=== PATIENT | male | born 1995 | race Caucasian/White ===

== ENCOUNTER 2017-12-03 10:57 | Emergency (ER) | payer OTHER ==
[~2017-12-03 10:57] MED LIST: ALBU8.5H12 IH; AMPH15TA3 PO; BECL8.7A6 IH; LOR5/325 PO
--- NOTE | 2017-12-03 11:36 | ER Report ---
History and Physical Time Seen By MD: 11:23 Hx. of Stated Complaint: ROLLED OVER IN BED, RIGHT SHOULDER DISLOCATED. THIS IS THE 4TH DISLOCATION ON THAT SIDE HPI/ROS CHIEF COMPLAINT: Right shoulder pain HISTORY OF PRESENT ILLNESS: 21-year-old male patient presents to emergency room with complaint of right shoulder pain. Patient has a history of shoulder dislocations 3. He states that he was rolling over in bed this morning and felt his shoulder pop out of place. He states that he does not have any numbness or tingling to his hand. He denies taking any medication for this. He states that last time this happened that he was "knocked out" and shoulder was reduced. Patient denies any nausea, vomiting or diarrhea. Patient denies any fevers chills. REVIEW OF SYSTEMS: Respiratory: No cough, no dyspnea. Cardiovascular: No chest pain, no palpitations. Gastrointestinal: No vomiting, no abdominal pain. Musculoskeletal: As noted above Allergies: Coded Allergies: No Known Drug Allergies (Unverified , 12/03/17) Home Meds Reported Medications Amphet Asp/Amphet/D-Amphet (ADDERALL 15 MG TABLET) 15 Mg Tablet, 15 MG PO BID 05/10/15 Albuterol Sul Hfa 90 Mcg 8 Gm (VENTOLIN HFA 90 MCG 8 GM) 8.5 Gm Hfa.aer.ad, 1-2 PUFF IH 3-4XD, INHALER 05/10/15 Beclomethasone Dipropionate 80 Mcg/Act (QVAR 80 MCG/ACT) 8.7 Gm Aer.w.adap, 8.7 GM IH 05/10/15 Discontinued Scripts Hydrocodone Bit/Acetaminophen (HYDROCODON-ACETAMINOPHEN 5-325) 1 Each Tablet, 1- 2 EACH PO Q6H, #20 TAB Prov:LOWELL WOO [employer] 05/18/15 Past Medical/Surgical History Patient has a past medical history of asthma, right shoulder dislocations 3. Patient has a surgical history of left shoulder surgery. Reviewed Nurses Notes: Yes Hx Smoking: No Smoking Status: Never Smoker Exposure to Second Hand Smoke?: No Constitutional Vital Sign - Last 24 Hours 12/03/17 12/03/17 12/03/17 12/03/17 10:57 11:00 11:00 11:12 Temp 98.0 Pulse ??? 79 ??? Resp 16 B/P (MAP) 136/99 (111) 136/99 Pulse Ox 98 O2 Delivery Room Air 12/03/17 12/03/17 12/03/17 12/03/17 11:30 11:42 11:57 12:00 Pulse ? B/P (MAP) 127/85 (99) 128/89 (102) Pulse Ox 95 12/03/17 12/03/17 12/03/17 12/03/17 12:05 12:05 12:08 12:10 Pulse 69 71 Resp 10 13 B/P (MAP) 135/93 (107) 132/89 (103) Pulse Ox 100 97 O2 Flow Rate 2.0 12/03/17 12/03/17 12/03/17 12/03/17 12:15 12:20 12:25 12:30 Pulse 75 ??? 63 69 Resp 12 25 6 10 B/P (MAP) 134/96 (109) 130/87 (101) 142/97 (112) 122/87 (99) Pulse Ox 95 84 100 12/03/17 12/03/17 12/03/17 12/03/17 12:35 12:40 12:45 12:50 Pulse 64 69 74 66 Resp 11 14 12 7 B/P (MAP) 128/90 (103) 131/88 (102) 139/90 (106) 139/96 (110) 12/03/17 12/03/17 12/03/17 12/03/17 12:55 13:00 13:05 13:10 Pulse 65 67 73 63 Resp 8 16 8 8 B/P (MAP) 137/88 (104) 134/95 (108) 133/90 (104) 127/96 (106) 12/03/17 12/03/17 12/03/17 12/03/17 13:15 13:20 13:25 13:30 Pulse 66 Resp 8 B/P (MAP) 128/88 (101) 134/103 (113) 126/85 (99) 129/85 (100) 12/03/17 12/03/17 13:35 13:40 Pulse 65 Resp 11 B/P (MAP) 140/84 (102) 125/89 (101) Intake and Output 12/03/17 12/03/17 12/04/17 15:00 23:00 07:00 Intake Total 1000 ml Balance 1000 ml Physical Exam General Appearance: The patient is alert, has no immediate need for airway protection and no current signs of toxicity. ENT: Mucus mucous membranes are moist. Respiratory: Chest is non tender, lungs are clear to auscultation. Cardiac: regular rate and rhythm Gastrointestinal: Abdomen is soft and non tender, no masses, bowel sounds normal. Musculoskeletal: Neck: Neck is supple and non tender. Extremities have full range of motion and are non tender. A has obvious dislocation with step-off at the right shoulder, the humeral head is palpable along the anterior chest. Skin: No rashes or lesions. DIFFERENTIAL DIAGNOSIS: After history and physical exam differential diagnosis was considered for shoulder dislocation, fracture. Medical Decision Making EKG/Imaging Imaging SHOULDER MIN 2 VIEWS RIGHT HISTORY: dislocation COMPARISON: None FINDINGS: AP and Y views of the right shoulder demonstrates the presence of an anterior infraglenoid glenohumeral joint dislocation. There is no evidence of acute bony abnormality. There are no significant degenerative changes. The acromioclavicular joint is normal in appearance. IMPRESSION: Anterior infraglenoid right glenohumeral joint dislocation without evidence of acute fracture. Report Dictated By: Amrit Hernandez at 12/03/2017 11:54 AM Report E-Signed By: Amrit Hernandez at 12/03/2017 11:55 AM SHOULDER MIN 2 VIEWS RIGHT HISTORY: post reduction COMPARISON: Today FINDINGS: AP and Y views of the right shoulder demonstrate that the previously identified anterior glenohumeral joint dislocation has been reduced. There is no evidence of acute fracture. There is no evidence of lytic or blastic bony lesions. There are no significant degenerative changes. The acromioclavicular joint is normal in appearance. IMPRESSION: Status post reduction of right anterior glenohumeral joint dislocation. Report Dictated By: Amrit Hernandez at 12/03/2017 1:37 PM Report E-Signed By: Amrit Hernandez at 12/03/2017 1:38 PM ED Course/Re-evaluation ED Course Patient was admitted exam room, history and physical were obtained. Differential diagnoses were considered. Examination patient had obvious step- off of the right shoulder, with humeral head noted with anterior chest. Nexium was done which confirmed dislocation. IV was started, patient received 4 mg of morphine, 4 mg Zofran. After reviewing the images the shoulder was reduced, the patient had conscious sedation done. Patient tolerated procedure well. A will be discharged at this time. He is to follow-up with orthopedics, will give him the information here in the emergency room. He is to call tomorrow to make an appointment. He is to limit his activity by pain. Patient will be given a limited supply of pain medication. Patient verbalized understanding and agreement with plan. Procedure: Dislocation reduction. The shoulder was reduced in the usual fashion without complications. Post reduction the patient's neurovascular exam is normal. Post reduction x-ray demonstrates reduction of the joint to the anatomic position. The procedure was performed by myself. Procedure: Procedural sedation. A pre-sedation evaluation was completed on the patient at 12:15. Patient is an appropriate candidate for procedural sedation. The risks of the sedation were discussed with the patient. A time out was completed. The patient was reevaluated immediately prior to initiation of sedation. The patient was sedated with 80 mg propofol. The patient was monitored with continuous pulse oximetry and promotions assistant. There were no complications and no significant hypoxemia. I remained at the bedside for the sedation. The total time I spent in the procedural sedation was 15 minutes. Post sedation evaluation: Patient was alert and cooperative, hemodynamically stable with appropriate respiratory status, temperature and pain control without ongoing nausea and vomiting. Decision to Disposition Date: Dec 03, 2017 Decision to Disposition Time: 13:45 Depart Departure Latest Vital Signs Vital Signs Date Time Temp Pulse Resp B/P (MAP) Pulse Ox O2 Delivery O2 Flow Rate FiO2 12/03/17 13:40 65 11 125/89 (101) 12/03/17 12:25 100 12/03/17 12:05 2.0 12/03/17 11:00 98.0 Room Air Impression: Primary Impression: Dislocation of left shoulder joint Condition: Improved Disposition: HOME OR SELF-CARE Referrals: ADELINA HICKS MD Patient Instructions: Shoulder Dislocation (ED) Additional Instructions: Your right shoulder was dislocated anteriorly when you came into the ER. We have reduced it for you and placed it in a sling. Were sling continuously except for hygiene. Ibuprofen 800 mg every 6 hours as needed for pain. Take with snack or meal. Ice application to the shoulder for 20 minutes 3-4 times daily. Follow-up with an orthopedic provider. Problem Qualifiers Primary Impression: Dislocation of left shoulder joint Encounter type: initial encounter Qualified Codes: S43.005A - Unspecified dislocation of left shoulder joint, initial encounter COURTNEY MICHELLE Dec 03, 2017 11:36
[2017-12-03] MEDS ORDERED: MORPHINE 4 MG/ML SDV IVP ONE (11:40)
[2017-12-03] MEDS ORDERED: PROPOFOL EMUL 10MG/ML 20 ML VL IVP ONE (11:40)
[2017-12-03] MEDS ORDERED: NS(*) 0.9% 1000 ML BAG 1,000 ML IV ONE (11:40)
[2017-12-03] MEDS ORDERED: ONDANSETRON 4 MG/2 ML VIAL IVP ONE (11:40)
--- NOTE | 2017-12-03 11:59 | RADIOLOGY IMAGING REPORT ---
FACILITY: [facility] PATIENT NAME: Ezra Mauro : 1995 MR: [id number] V: [id number] EXAM DATE: ORDERING PHYSICIAN: COURTNEY MICHELLE TECHNOLOGIST: Location: [facility] - [place] Patient: Ezra Mauro : 1995 Visit/Account:[id number] Date of Sevice: 12/03/2017 SHOULDER MIN 2 VIEWS RIGHT HISTORY: dislocation COMPARISON: None FINDINGS: AP and Y views of the right shoulder demonstrates the presence of an anterior infraglenoid glenohumeral joint dislocation. There is no evidence of acute bony abnormality. There are no signifi cant degenerative changes. The acromioclavicular joint is normal in appearance. IMPRESSION: Anterior infraglenoid right glenohumeral joint dislocation without evidence of acute fracture. Report Dictated By: Amrit Hernandez at 12/03/2017 11:54 AM Report E-Signed By: Amrit Hernandez at 12/03/2017 11:55 AM WSN:[email or web address]
[2017-12-03] MEDS ORDERED: KETOROLAC 15 MG/ML VIAL IVP ONE (12:30)
[2017-12-03 13:40] VITALS: BP 125/89
--- NOTE | 2017-12-03 13:43 | RADIOLOGY IMAGING REPORT ---
FACILITY: [facility] PATIENT NAME: Ezra Mauro : 1995 MR: [id number] V: [id number] EXAM DATE: ORDERING PHYSICIAN: COURTNEY MICHELLE TECHNOLOGIST: Location: [facility] Patient: Ezra Mauro : 1995 Visit/Account:[id number] Date of Sevice: 12/03/2017 SHOULDER MIN 2 VIEWS RIGHT HISTORY: post reduction COMPARISON: Today FINDINGS: AP and Y views of the right shoulder demonstrate that the previously identified anterior gl enohumeral joint dislocation has been reduced. There is no evidence of acute fracture. There is no evidence of lytic or blastic bony lesions. There are no significant degenerative changes. The acromi oclavicular joint is normal in appearance. IMPRESSION: Status post reduction of right anterior glenohumeral joint dislocation. Report Dictated By: Amrit Hernandez at 12/03/2017 1:37 PM Report E-Signed By: Amrit Hernandez at 12/03/2017 1:38 PM WSN:[email or web address]
== END 2017-12-03 13:58 | disposition home or self-care (01) ==
LOC: ER 11:04
DX: S43.005A Unspecified dislocation of left shoulder joint, initial encounter (principal)
CPT/HCPCS: 23650; 73030; 96361; 96374; 96375; 99152; 99284; A4565; J1885; J2270; J2405; J2704; J7030

== ENCOUNTER → 2017-12-22 | Outpatient (CLI) | payer OTHER ==
[~2017-12-22] MED LIST changes: +GADOBENATE 529MG/1ML 5 ML VIAL ONE; +IOPAMIDOL-200 50 ML VIAL IS ONE
--- NOTE | 2017-12-22 17:38 | RADIOLOGY IMAGING REPORT ---
FACILITY: [facility] - [place] PATIENT NAME: Ezra Mauro : 1995 MR: [id number] V: [id number] EXAM DATE: ORDERING PHYSICIAN: CORNELIA HUDSON TECHNOLOGIST: Location: [facility] - [place] Patient: Ezra Mauro : 1995 Visit/Account:[id number] Date of Sevice: 12/22/2017 Exam type: ARTHROGRAM PRE-MRI History: Recurrent dislocation of the right shoulder Comparison: Right shoulder series December 03, 2017. Findings: Informed consent was obtained. The right shoulder was prepped and draped in usual sterile fashion. Local anesthesia was accomplished with 1% lidocaine. A 22-gauge spinal needle was advanced percutane ously into the anterior aspect right shoulder joint. Several milliliters of Isovue-200 was instilled into the shoulder joint under fluoroscopic guidance to confirm needle placement. Approximately 11 m L of a dilute gadolinium suspension was then injected into the right shoulder joint under fluoroscopi c guidance. Needle was removed and adequate hemostasis was obtained. The patient was then taken to the MR suite for further imaging.. The fluoroscopy dose area product was 43.18 micro-Motley per meter squared IMPRESSION: 1. Successful fluoroscopically guided right shoulder arthrogram Report Dictated By: Tigist Delgado MD at 12/22/2017 5:28 PM Report E-Signed By: Tigist Delgado MD at 12/22/2017 5:32 PM WSN:[email or web address]
--- NOTE | 2017-12-23 14:14 | RADIOLOGY IMAGING REPORT ---
FACILITY: [facility] PATIENT NAME: Ezra Mauro : 1995 MR: [id number] V: [id number] EXAM DATE: ORDERING PHYSICIAN: CORNELIA HUDSON TECHNOLOGIST: Location: [facility] [place] Patient: Ezra Mauro : 1995 Visit/Account:[id number] Date of Sevice: 12/22/2017 MR arthrogram right shoulder Indication: Right shoulder dislocation. Comparison: None available. Technique: Sagittal and coronal T1 weighted fat saturated and T2-weighted fat saturated as well as ax ial T1-weighted and a gradient echo images were obtained through the right shoulder after intra-artic ular administration of gadolinium. Findings: Rotator cuff: Supraspinous and intraspinous are intact as well as the subscapularis and teres minor. There is no c ontrast extending into the subacromial/subdeltoid bursa. Biceps tendon: Extra-articular portion of the long head of biceps tendon appears unremarkable within the bicipital g roove. The intra-articular portion of the tendon is intact and unremarkable. AC joint and acromion: There are no significant acromioclavicular degenerative changes. Low-lying appearance of the acromion noted which can predispose to impingement. Labrum: Increased signal of the posterior superior labrum related to nondisplaced labral tear. There is also mild medial displaced Bankart lesion of the anterior inferior labrum secondary to prior anterior dis location. No definite capsular injury identified. Bones and cartilage: There is a small defect with moderate surrounding marrow edema involving the posterior superior humer al head related to a Hill-Sachs lesion from prior anterior dislocation. No focal chondral defect glenohumeral joint cartilage.. Effusion, bursitis: There is no contrast seen to extend into the subacromial/subdeltoid bursa. IMPRESSION: 1. Evidence of prior anterior dislocation with Hill-Sachs lesion posterior superior humeral head and displaced Bankart lesion anterior-inferior labrum as above. Report Dictated By: Chon Trevino MD at 12/23/2017 2:06 PM Report E-Signed By: Chon Trevino MD at 12/23/2017 2:09 PM WSN:[id number]
== END ==
LOC: MRI 13:08
PROVIDERS: ATTEND Emergency Medicine Sports Medicine
DX: S42.209A Unspecified fracture of upper end of unspecified humerus, initial encounter for closed fracture (principal); M24.411 Recurrent dislocation, right shoulder
CPT/HCPCS: 73222; 77002; A9577; Q9966